=== PATIENT | male | born 1960 ===

== ENCOUNTER 2020-05-30 14:07 | Emergency (ER) | payer SELFPAY ==
--- NOTE | 2020-05-30 17:32 | Emergency Department Report ---
Blank Doc - Documentation Documentation: 60-year-old male that presents with chest pain and SOB. Also stated has cough. This initial assessment/diagnostic orders/clinical plan/treatment(s) is/are subject to change based on patient's health status, clinical progression and re- assessment by fellow clinical providers in the ED. Further treatment and workup at subsequent clinical providers discretion. Patient/guardians urged not to elope from the ED as their condition may be serious if not clinically assessed and managed. Initial orders include: 1- Patient sent to MAIN ED for further evaluation and treatment 2- cardiac workup
--- NOTE | 2020-05-30 18:10 | XRay Report ---
XR chest routine 2V INDICATION / CLINICAL INFORMATION: Chest Pain. COMPARISON: None FINDINGS: SUPPORT DEVICES: None. HEART /PULMONARY VASCULATURE: No significant abnormality. LUNGS / PLEURA: Diffuse patchy increased interstitial markings. No focal airspace consolidation or pl eural effusion. No pneumothorax. ADDITIONAL FINDINGS: No significant additional findings. IMPRESSION: Diffuse increased interstitial markings, which may reflect interstitial edema or infiltrate. Signer Name: Wojciech Vaughan MD Signed: 05/30/2020 6:06 PM Workstation Name: [id number]
[2020-05-30 18:28] LABS: Alanine Aminotransferase 52 units/L (7-56); Albumin 3.5 g/dL (3.9-5); BUN/Creatinine Ratio 25; Blood Urea Nitrogen 32 mg/dL (9-20); Calcium 9.3 mg/dL (8.4-10.2); Hemolysis Index 10
[2020-05-30 18:29] LABS: Hematocrit 49.6 % (35.5-45.6); Hemoglobin 16.7 gm/dl (11.8-15.2); Mean Corpuscular HGB Conc 34 % (32-34); Mean Corpuscular Volume 88 fl (84-94); Platelet Count 550 K/mm3 (140-440); Red Blood Count 5.65 M/mm3 (3.65-5.03)
[2020-05-30 18:38] VITALS: BP 127/72
[2020-05-30 18:45] LABS: INR 1.15 (0.87-1.13)
[2020-05-30 18:46] LABS: Partial Thromboplastin Time 28.6 Sec. (24.2-36.6)
[2020-05-30 19:13] LABS: RBC Morphology Normal; Total Cells Counted 100
== END 2020-05-30 17:32 | disposition left against medical advice (07) ==
LOC: ED 14:07
DX: Z00.8 Encounter for other general examination (principal); Z53.21 Procedure and treatment not carried out due to patient leaving prior to being seen by health care provider
CPT/HCPCS: 36415; 71046; 80053; 84484; 85007; 85025; 85610; 85730